=== PATIENT | female | born 1980 | race Caucasian/White ===

== ENCOUNTER → 2018-03-19 | Outpatient (CLI) | payer BC ==
[2015-07-29 07:00] VITALS: BP 113/74
[~2018-03-19] MED LIST: DOCU-109 PO; HYDR-2758 PO; LEVO500T59 PO
--- NOTE | 2018-03-19 10:35 | RAD ---
DATE: 03/19/2018 EXAM: MAMMO SUSANA JW MCCOLLUM, BREAST LEFT HISTORY: Left breast pain COMPARISON: 02/16/2016 This study was interpreted with the benefit of Computerized Aided Detection (CAD). Breast Density: HETERO The breast parenchyma is heterogenously dense, which could reduce sensitivity of mammography. Breast parenchyma level C. FINDINGS: 2-D mammograms are obtained in CC and MLO projections. 3-D tomosynthesis imaging was also performed on the left. There is an asymmetric rounded area of increased density in the lateral aspect of the left breast at the 3:00 location. It measures approximately 4 cm in diameter. No new breast densities seen on the right. Minimal benign type calcifications are present. No suspicious microcalcifications are evident. Left breast ultrasound, 03/19/2018: A targeted ultrasound exam of the lateral aspect left breast was performed. At the 3:00 location approximately 6 cm from the nipple there is heterogeneous tissue, different than the remainder of the breast. This process measures approximately 4 cm in greatest diameter. It represents a combination of hyperechoic and slightly hypoechoic tissues. There is no significant posterior acoustic enhancement or shadowing. Its margins are not clearly defined. There is corresponds in location to the asymmetric mammographic abnormality. Diagnostic considerations include asymmetric fibrocystic tissue or a fibroadenolipoma. Infiltrating malignancy cannot be excluded. IMPRESSION: Asymmetric heterogeneous left breast mass as described above. Ultrasound-guided biopsy is suggested for further evaluation. Note: The findings were discussed with the patient at the time of the exam and she understands the recommendation for biopsy. She will follow up with the ordering provider. BI-RADS CATEGORY: 4 SUSPICIOUS ABNORMALITY- BIOPSY SHOULD BE CONSIDERED RECOMMENDED FOLLOW-UP: BIO BIOPSY RECOMMENDED PQRS compliance statement: Patient information was entered into a reminder system with a target due date for the next mammogram. Mammography is a sensitive method for finding small breast cancers, but it does not detect them all and is not a substitute for careful clinical examination. A negative mammogram does not negate a clinically suspicious finding and should not result in delay in biopsying a clinically suspicious abnormality. "Our facility is accredited by the [employer] Mammography Program."
== END | disposition home or self-care (01) ==
LOC: MAMMO 09:21
PROVIDERS: ATTEND Nurse Practitioner Family
DX: N63.21 Unspecified lump in the left breast, upper outer quadrant (principal); Z90.710 Acquired absence of both cervix and uterus; Z88.1 Allergy status to other antibiotic agents; Z82.49 Family history of ischemic heart disease and other diseases of the circulatory system; Z80.8 Family history of malignant neoplasm of other organs or systems; Z80.3 Family history of malignant neoplasm of breast
CPT/HCPCS: 76641; 77066; G0279; 77062

== ENCOUNTER → 2018-04-11 | Outpatient (CLI) | payer BC ==
[2015-07-29 07:00] VITALS: BP 113/74
--- NOTE | 2018-04-15 15:07 | PATHOLOGY ---
[facility] Accession Number: [id number] . 01 Material submitted: . LEFT BREAST 3:00, 6 CM FN . 01 Clinical history: . Left breast mass . 02 Diagnosis: Breast tissue, left breast mass 3:00 needle biopsies: - Stromal fibrosis and focal cystic change. [facility]/04/15/2018 . 02 Comment: There is no evidence of malignancy. Correlate with mammographic findings. . (JPM:[facility] 04/15/2018) . 02 Electronically signed: . Tristin Pascual MD, Pathologist NPI- [id number] . 01 Gross description: . The specimen is received in formalin, labeled "Theno, Ananya, left breast" and consists of 5 needle cores of yellow-eisenberg tissue measuring between 0.5 cm and 1.2 cm in length and ranging from 0.1-0.2 cm in diameter. They are entirely submitted in A1-A2. The specimen was obtained at 2:45 PM on 04/11/18 and placed in formalin at 2:50 PM. The cold ischemic time is 5 minutes and the total formalin fixation time is greater than 6 hours but less than 72 hours. (SDY; 04/12/2018) SYU/SYU . 02 Pathologist provided ICD-10: N60.32 . 02 CPT . 536497 Specimen Comment: A courtesy copy of this report has been sent to Specimen Comment: [phone], , . Specimen Comment: Report sent to ,DR CARCAMO / DR ACEVEDO Specimen Comment: A duplicate report has been generated due to demographic updates. Performed at: [address], [place], [place] [id number] MD Yariel Hart MD Phone: [phone] Performed at: [address] [id number] MD Tristin Pascual MD Phone: [phone]
--- NOTE | 2018-04-17 07:58 | RAD ---
Ultrasound-guided left breast biopsy, 04/11/2018: History: Suspicious density Previous studies demonstrated suspicious breast tissue in the lateral left breast at the 9-10:00 location. Under local anesthesia, aseptic conditions and sonographic guidance 5 separate 14-gauge samples were obtained from different portions of this density. The materials were sent to pathology for evaluation. A biopsy marker was then deposited at the biopsy site. Two-view postprocedural mammograms were then obtained to document position of the biopsy marker. The marker lies within the area of mammographic suspicion. The patient tolerated the procedure well and left the department in good condition. The subsequent pathology report indicated the presence of stromal fibrosis without evidence of malignancy. This is considered to be a concordant finding.
== END | disposition home or self-care (01) ==
LOC: US 14:10
PROVIDERS: ATTEND Surgery
DX: N60.32 Fibrosclerosis of left breast (principal); Z88.1 Allergy status to other antibiotic agents
CPT/HCPCS: 19083; 77065; 88305; C1713; 19081; 76942